=== PATIENT | male | born 1970 | race African-American/Black ===

== ENCOUNTER 2018-11-19 15:30 | Emergency (ER) | payer OTHER ==
--- NOTE | 2018-11-19 18:35 | RAD ---
RIGHT ELBOW 4 VIEWS: Date: 11/19/18 HISTORY: Fall. Right elbow pain. FINDINGS/IMPRESSION: No acute fracture or dislocation is seen. A tiny radiopaque density is seen in the posterior soft tis sues of the elbow which may represent a foreign body. POS: [id number]
== END 2018-11-19 16:42 | disposition home or self-care (01) ==
LOC: BURERS 15:30
DX: S46.321A Laceration of muscle, fascia and tendon of triceps, right arm, initial encounter (principal); I10 Essential (primary) hypertension; E78.5 Hyperlipidemia, unspecified; W18.30XA Fall on same level, unspecified, initial encounter